=== PATIENT | male | born 1955 | race Caucasian/White ===

== ENCOUNTER → 2018-03-01 11:24 | Outpatient (CLI) | payer BC, SELFPAY ==
[2018-03-01 11:45] LABS: Basophils % 0.4 % (0.1-2.0); Eosinophils # 0.1 K/mm3 (0.0-0.4); Eosinophils % 1.3 % (0.1-12.0); Hematocrit 47.5 % (42.0-52.0); Hemoglobin 15.3 g/dL (14.1-18.0); Lymphocytes # 2.4 K/mm3 (0.7-4.5); Lymphocytes % 31.2 K/mm3 (10-50); Mean Corpuscular HGB Conc 32.1 g/dL (31.8-35.4); Mean Corpuscular Hemoglobin 28.9 pg (27.0-31.2); Mean Corpuscular Volume 89.8 fl (80-94); Monocytes # 0.5 K/mm3 (0.1-1.0); Monocytes % 6.3 % (1.7-9.3); Neutrophils # 4.7 K/mm3 (1.8-7.8); Neutrophils % 60.8 % (37.0-80.0); Platelet Count 196 K/mm3 (142-424); Red Blood Count 5.29 M/mm3 (4.60-6.20); Red Cell Distribution Width 12.8 % (11.5-17.5); White Blood Count 7.8 K/mm3 (4.8-10.8)
[2018-03-01 12:04] LABS: Alanine Aminotransferase 46 U/L (12-78); Albumin/Globulin Ratio 1.1 (1.1-1.8); Alkaline Phosphatase 88 U/L (46-116); Anion Gap 11.5 mEq/L (5-15); Bilirubin,Total 0.4 mg/dL (0.2-1.0); Blood Urea Nitrogen 19 mg/dL (7-18); Calcium 9.5 mg/dL (8.5-10.1); Carbon Dioxide 31 mmol/L (21.0-32.0); Chloride 107 mmol/L (98-107); Creatinine,Serum 0.83 mg/dL (0.70-1.30); Estimated Glomerular Filt Rate 94 ml/min (>60); GFR (African American) 114 ML/MIN (>60); Globulin 3.7 gm/dl (1.3-3.2); Glucose 99 mg/dL (74-106); Sodium 145 mmol/L (136-145); Total Protein,Serum 7.7 gm/dL (6.4-8.2)
[2018-03-01 12:07] LABS: Aspartate Amino Transferase 22 U/L (15-37); Potassium 4.5 mmoL/L (3.5-5.1)
== END ==
PROVIDERS: Visit Provider Surgery
DX: Z01.818 Encounter for other preprocedural examination (principal)
CPT/HCPCS: 36415; 80053; 85025

== ENCOUNTER → 2019-02-28 10:51 | Outpatient (POV) | payer BC, SELFPAY | PROVIDERS: PCP Nurse Practitioner Family; Referring Provider Family Medicine; Visit Provider Nurse Practitioner Family | DX: Z00.00 Encounter for general adult medical examination without abnormal findings (principal) ==

== ENCOUNTER 2021-04-06 19:49 | Emergency (ER) | payer BC, SELFPAY ==
[2021-04-06 21:16] VITALS: BP 179/91; PULSE 57; RESP 18; TEMP 37.1; O2SAT 100; BMI 24.4
[2021-04-06 21:21] VITALS: BP 162/84; PULSE 63; RESP 18; TEMP 36.9
--- NOTE | 2021-04-06 21:21 | HMH.EDUTC ---
[facility] [place] Disposition Clinical Impression: Exposure to COVID-19 virus Disposition: Home, Self-Care Condition on Discharge: Good Instructions: DI for COVID-19 (Suspected or Confirmed ), Preventing the Spread of Coronavirus Discharge Instructions Additional Instructions: Drink plenty of fluids. Take tylenol for pain or fever. Return if you begin to have difficulty breathing. Follow up with your regular doctor. GO TO THE ER FOR ANY WORSENING SYMPTOMS Quarantine until you know the results of your covid-19 test. If it is positive, the health department should call you and give you further instructions about your length of Quarantine and other things. Notify your school or workplace of your results and follow their instructions regarding return to work/school. Referrals: Johny Beal MD [Primary Care Provider] - Time of Disposition: 21:23 Medical Decision Making - Medical Records Medical records reviewed: No: I reviewed the patient's medical records. - Kristian Inquiry Pt receiving controlled substance: No Vital Signs: 04/06/21 21:16 04/06/21 21:21 Temperature 98.7 F 98.5 F Temperature Source Oral Pulse Rate 63 Pulse Rate [Left] 57 L Respiratory Rate 18 18 Blood Pressure 162/84 H Blood Pressure [Right Arm] 179/91 H Blood Pressure Mean [Right Arm] 120 02 Sat by Pulse Oximetry 100 Orders (Tests/Meds): ORDERS Category Date Time Status Covid-19 Nasal PCR ([facility]) Routine Lab 04/06/21 21:17 Received [facility] [place] HPI - General Stated complaint: covid test Time Seen by Provider: 04/06/21 21:21 Mode of Arrival: Ambulatory Source of Information: Patient Limitations: No Limitations Description of Symptoms (Recalled from Triage Doc. by RN): PT IS ASYMPTOMATIC. 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 HEENT Symptoms (Recalled from RN notes): No Resp Symptoms (Recalled from RN notes): No Skin Symptoms (Recalled from RN notes): No MS Symptoms (Recalled from RN notes): No Functional Status (Recalled from RN notes): NA - History of Present Illness Provider Complaint: He was exposed to covid-19 at his job. He denies any symptoms but he was instructed to get tested for covid. He has been vaccinated against covid-19. - Related Data Home Medications Medication Instructions Recorded Confirmed Aspirin [Aspir 81] 81 mg PO HS 01/19/18 03/06/21 atorvastatin 40 mg tablet 40 mg PO tab 03/06/21 03/06/21 omeprazole 40 mg capsule,delayed 40 mg PO cap 03/06/21 03/06/21 release Allergies Allergy/AdvReac Type Severity Reaction Status Date / Time No Known Allergies Allergy Verified 03/06/21 09:23 - Worker's Comp Is this a Worker's Comp case?: No [facility] History - Hepatitis A Screen Drug use history?: No High risk sexual behaviors?: No History of sexually transmitted infection?: No Currently employed?: No Childcare worker?: No Do you have indoor plumbing?: Yes Do you have electricity?: Yes Attestation statement:: This patient has been screened for Hepatitis A risk factors. I have reviewed the patient's past medical history: Yes Medical History: Reports:: Coronary Artery Disease, Gastroesophageal Reflux Disease(GERD), Hyperlipidemia Denies:: Cancer, Diabetes Mellitus Type 1, Diabetes Mellitus Type 2, Internal Pacemaker, Lung Disease, MRSA, Seizures Other Medical History: Reports: Other. Denies: Blood Transfusion Reaction Laterality Cases: Right: Other Other Surgeries: Yes: Appendectomy, Cardiac Surgery, Cholecystectomy, Colonoscopy. No: Pacemaker Amputation: No Fractures: No Comment: Open heart surgery. Left Arm fracture repair in 2nd grade - Social History Smoking Status: Never smoker Alcohol Intake: never Alcohol Intake Frequency:: other Substance Use Type: denies use Occupational Status: employed Housing: house Household Members: spouse Family Hx:: Hypertension, Hyperlipidemia ROS Obtained: Yes All systems reviewed & no additional complaints - Constitutional
== END 2021-04-06 21:25 | disposition home or self-care (01) ==
PROVIDERS: Emergency Provider Nurse Practitioner Family; PCP Family Medicine
DX: Z20.822 Contact with and (suspected) exposure to COVID-19 (principal); K21.9 Gastro-esophageal reflux disease without esophagitis; E78.5 Hyperlipidemia, unspecified; I25.10 Atherosclerotic heart disease of native coronary artery without angina pectoris
CPT/HCPCS: 99202; G0463; U0003

== ENCOUNTER 2024-04-29 17:26 | Emergency (ER) | payer MEDICARE, BC, SELFPAY ==
[2024-04-29 17:48] VITALS: BP 148/87; PULSE 82; RESP 20; TEMP 37.3; O2SAT 97; BMI 25.1
--- NOTE | 2024-04-29 18:13 | ED_ITS ---
Discharge Plan Disposition Patient Disposition: Home, Self-Care Condition: Good Prescriptions Prescriptions: No Action omeprazole 40 mg capsule,delayed release(DR/EC) 40 mg PO atorvastatin 40 mg tablet 40 mg PO Patient Comments: TAKE 1 TABLET BY MOUTH EVERY DAY AT BEDTIME aspirin 81 MG tablet,delayed release (DR/EC) 81 mg PO HS Referrals Follow up/Referrals: Johny Beal MD [Primary Care Provider] - See instructions Activity Restrictions/Add. Instructions Additional Instructions/Restrictions: *Monitor Temp, Over the counter Motrin or Tylenol as directed/as needed Tylenol every 4 hours and Motrin every 6 hours (as long as your family doctor has told you that you can take it) for fever or pain. and straight to ER if unable to lower temp less than 101.0 after medication given *Warm salt water gargles may help to soothe the throat *Throat Lozenges? *Warm fluids like tea with honey may help to soothe the throat? *Sleep elevated *Humidifier/Vaporizer Follow up IMMEDIATELY for new or worsening symptoms or no Noticeable im provement over the next 48-72 hours. 911 for difficulty breathing or swallowing You were tested for today for COVID19 your test result should be back in the next 24 hours, you may check your results on the [facility] [employer] [facility] Portal Clinical Impressions Clinical Impression: Viral syndrome Instructions Patient Instructions: DI for Fever (Symptom) -- Adult, DI for Viral Syndrome Print Language Print Language: Turkmen Discharge ED Provider: Lita Herrera [facility] [place] HPI General Stated complaint: fever, ear ache body ache Mode of Arrival: Ambulatory Source of Information: Patient Time Seen by Provider: 04/29/24 18:13 Description of Symptoms (Recalled from Triage Doc. by RN): FEVER, BODY ACHES, LEFT EAR HURTING HEENT Symptoms (Recalled from RN notes): Yes Resp Symptoms (Recalled from RN notes): Yes Skin Symptoms (Recalled from RN notes): No MS Symptoms (Recalled from RN notes): No Functional Status (Recalled from RN notes): WNL History of Present Illness Provider Complaint: Patient states that he started feeling bad on Wed with nasal congestion and achy like pain in his left ear but that is better now but today he started with body aches, chills, nasal congestion and just over all feeling bad so he came in to get checked Denies known sick contacts Related Data Home Medications ?Medication ?Instructions ?Recorded ?Confirmed aspirin 81 mg tablet,delayed 81 mg PO [facility] 01/19/18 03/06/21 release atorvastatin 40 mg tablet 40 mg PO 03/06/21 03/06/21 omeprazole 40 mg capsule,delayed 40 mg PO 03/06/21 03/06/21 release Allergies Allergy/AdvReac Type Severity Reaction Status Date / Time No Known Allergies Allergy Verified 03/06/21 09:23 Worker's Comp Is this a Worker's Comp case?: No PFSH [facility] Disclaimer: The information contained in this section may have been updated after the patient was seen, as this information can be updated by other users. Social History Smoking Status: Never smoker alcohol intake: never counseling provided: none substance use type: denies use current occupational status: employed Travel in the last 8 weeks: None household members: spouse housing: house current occupation: [employer] current occupational exposures/hazards: Yes caffeine: No ROS Obtained: Yes All systems reviewed & no additional complaints except as documented and Yes Systems reviewed as appropriate & no additional complaints except as documented Constitutional Constitutional: Reports system reviewed and no additional complaints, except as documented, Reports as per HPI, Reports body ache, Reports chills and Reports fever(s) ENT Ears, Nose, Mouth, and Throat: Reports system reviewed and no additional complaints, except as documented, Reports as per HPI, Reports nasal congestion and Reports nasal discharge Cardiovascular Cardiovascular: Reports system reviewed and no additional complaints, except as documented and Reports as per HPI Respiratory Respiratory: Reports system reviewed and no additional complaints, except as documented and Reports as per HPI Gastrointestinal Gastrointestingal: Reports system reviewed and no additional complaints, except as documented and as per HPI Physical Exam General General appearance: alert and in no apparent distress ENT ENT exam: Present mucous membranes moist and TM's normal bilaterally Expanded ENT Exam Nose exam: Absent sinus tenderness Throat exam: Present normal inspection Respiratory Respiratory exam: Present normal lung sounds bilaterally; Absent respiratory distress or wheezes Cardiovascular Cardiovascular exam: Present regular rate, normal rhythm and normal heart sounds Abdominal Exam Abdominal exam: Present soft and normal bowel sounds; Absent distention or tenderness Neurological Exam Neurological exam: Present alert, oriented X3 and normal gait Medical Decision Making Medical Records Screening: Per USPSTF and CDC recommendations, given the prevalence of disease in our region, it is our hospital?s policy to screen for HIV and viral Hepatitis for all patients aged 18 and over and those with ongoing risk factors. Kristian Inquiry Pt receiving controlled substance: No Kristian was queried for this patient: No Vital Signs: 04/29/24 17:48 Temperature 99.1 F Temperature Source Oral Pulse Rate [Left Brachial] 82 Respiratory Rate 20 Blood Pressure [Left Arm] 148/87 H Blood Pressure Mean [Left Arm] 107 02 Sat by Pulse Oximetry 97 Lab Data Lab results reviewed: Yes I reviewed the patient's lab results. Orders (Tests/Meds): ORDERS Category Date Time Status Covid-19 Nasal PCR ([facility]) Routine Lab 04/29/24 18:12 Ordered
[2024-04-29 18:42] LABS: UTC Influenza A Antigen Negative (Negative); UTC Influenza B Antigen Negative (Negative)
[2024-04-29 19:01] VITALS: BP 148/87; PULSE 82; RESP 22; TEMP 37.3
== END 2024-04-29 19:02 | disposition home or self-care (01) ==
PROVIDERS: Emergency Provider Nurse Practitioner; PCP Family Medicine
DX: R50.9 Fever, unspecified (principal); B34.9 Viral infection, unspecified; H92.02 Otalgia, left ear; R09.81 Nasal congestion
CPT/HCPCS: 87635; 87804; 99203; 99212; G0463

== ENCOUNTER 2024-05-19 10:08 | Outpatient (CLI) | payer MEDICARE, BC, SELFPAY ==
--- NOTE | 2024-05-19 10:21 | XR_ITS ---
FINAL REPORT CLINICAL HISTORY: Left foot pain, injury in August FINDINGS: LEFT FOOT 3 views were obtained. There is no acute fracture or dislocation. The joint spaces are intact. There is no soft tissue abnormality. IMPRESSION: No acute bony abnormality. Reviewed, Interpreted and Dictated by Sai Ferrera III, MD Transcribed by Hillary Stover Authenticated and [facility]
--- NOTE | 2024-05-19 10:21 | XR_ITS ---
FINAL REPORT CLINICAL HISTORY: Left ankle pain, injury in August FINDINGS: LEFT ANKLE Three views demonstrate no acute fracture or dislocation. There is a calcification in the region of the distal Achilles tendon. The joint spaces appear normal. No acute soft tissue abnormality is seen. IMPRESSION: No acute bony abnormality. Reviewed, Interpreted and Dictated by Sai Ferrera III, MD Transcribed by Hillary Stover Authenticated and . [facility]
== END 2024-05-19 23:59 | disposition home or self-care (01) ==
LOC: RAD 10:15
PROVIDERS: PCP Family Medicine; Visit Provider Nurse Practitioner Family
DX: M79.672 Pain in left foot (principal)
CPT/HCPCS: 73610; 73620

== ENCOUNTER 2024-07-18 13:39 | Outpatient (RCR) | payer MEDICARE, BC, SELFPAY ==
--- NOTE | 2024-07-18 14:50 | HMH.PTOPEV ---
PT Outpatient Evaluation Rehab PT Outpatient Evaluation Start: 07/18/24 13:47 Freq: Status: Active Protocol: Document 07/18/24 13:47 SHEILA (Rec: 07/18/24 14:34 SHEILA [id number]) E-signed By Valarie Barry, PT Outpatient Therapy Subjective History Subjective History This is an initial physical therapy evaluation for 68 y/o male, Sunday Freitas, who presents with referral for L ankle sprain, L ankle instability, and peroneal tendonitis. Per pt?s last office visit with referring physician, pt is FWBing in ankle brace. Pt?s initial ankle injury was on 08/10/23. X- rays were clear for bony abnormality. Pt has not received an MRI to confirm soft tissue injury. Pt reports improved symptoms since initial injury. 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 Pt reports no swelling, no pain, and no issues with ROM. Pt goes back the to his doctor in August. Pt wears a stability ankle brace when outside or in the community. Reports no pain when ambulating at home without brace. Mechanism of injury: Twisted his ankle getting off of a tractor in August of 2023. I don't have issues now New diagnosis of cancer in past 12 No months? Prior Functional Limitations None Current Functional Limitations None Symptom Description Activity Dependent Level of pain today (0-10) 0 Pain scale - at its best (0-10) 0 Pain scale - at its worst (0-10) 1 Ankle/Foot Eval Gait Observation General Gait Pattern Observation No Deviations/Normal Assistive Device Ambulation Assistive Device None Palpation Tenderness left Ankle/Foot Palpation Findings None/Normal Ankle/Foot Palpation Overall Comment 0/4 TTP ATF TTP negative PTF TTP negative CF TTP negative Deltoid ligament TTP negative ROM Ankle/Foot Dorsiflexion w/Knee Flexed 15, non-painful Active Range of Motion (degrees) Ankle/Foot Plantar Flexion Active Range 50, non-painful of Motion (degrees) Ankle/Foot Eversion Active Range of 40, non-painful Motion (degrees) Ankle/Foot Inversion Active Range of 35, non-painful Motion (degrees) MMT Ankle Dorsiflexion Strength Grade 5 Normal Ankle Plantarflexion Strength Grade 5 Normal Foot Eversion Strength Grade 5 Normal Foot Inversion Strength Grade 4 Good Special Tests Ankle Anterior Drawer Test Negative Left Talar Tilt Test Negative Left Ankle Posterior Drawer Test Negative Left Lower Extremity Functional Index Activities Today, do you or would you have any difficulty at all with: a.Any of your usual work, housework or No difficulty school activities b. Your usual hobbies, recreational or No difficulty sporting activities c. Getting into or out of the bath No difficulty d. Walking between rooms No difficulty e. Putting on your shoes or socks No difficulty f. Squatting No difficulty g. Lifting an object, like a bag of No difficulty groceries from the floor h. Performing light activities around No difficulty your home i. Performing heavy activities around No difficulty your home j. Getting into or out of a car No difficulty k. Walking 2 blocks No difficulty l. Walking a mile No difficulty m. Going up or down 10 stairs (about 1 No difficulty flight of stairs) n. Standing for 1 hour No difficulty o. Sitting for 1 hour No difficulty p. Running on even ground No difficulty q. Running on uneven ground No difficulty r. Making sharp turns while running fast No difficulty s. Hopping No difficulty t. Rolling over in bed No difficulty LEFI Score Lower Extremity Functional Index Score 80 Outpatient Therapy Assessment Prognosis Rehab Potential Innapropriate for Skilled Therapy Comment Initial outpatient physical therapy evaluation performed. Pt presents with ROM that is WNL and non-painful, no edema or ankle swelling, 5-4/5 ankle strength (non-painful), ability to perform single-leg calf raise without pain, and good SLS stance balance without brace. Pt not TTP nor had any c/o ankle pain with ankle special tests. Pt not appropriate for outpatient PT d/t minimal-no remaining deficits after his ankle sprain back in August. PT provided pt with HEP with stretches and ankle exercises to improve ankle stability. PT instructed pt on HEP and educated him to continue following up with his MD as needed. Outpatient Therapy Plan of Care Addendums This patient is a candidate for social No or vocational rehab? Patient/Guardian verbally acknowledges Yes understanding of treatment program and consents to further treatment? Patient/Guardian verbally acknowledges Yes understanding of diagnosis, prognosis and goals for treatment? Eval Complexity PT Charges 45374 - Low Complexity Shoulder/Elbow Eval Shoulder Objective Measurements Elbow Objective Measurements PHYSICIAN CERTIFICATION: I certify the specified therapy services for Sunday Robins Fortino are required, authorized, and reviewed every 30 days.
== END 2024-07-18 23:59 | disposition home or self-care (01) ==
LOC: PT 13:39
PROVIDERS: PCP Family Medicine; Visit Provider Podiatrist
DX: M76.72 Peroneal tendinitis, left leg (principal); M25.372 Other instability, left ankle; M25.572 Pain in left ankle and joints of left foot; S93.412A Sprain of calcaneofibular ligament of left ankle, initial encounter
CPT/HCPCS: 97163